=== PATIENT | female | born 1955 | race Caucasian/White ===

== ENCOUNTER 2019-03-23 11:08 | Observation (INO) ==
--- NOTE | 2019-03-23 16:05 | Emergency Department Note ---
Disposition Clinical Impression: Flushing, Hyperglycemia Hypertension Qualifiers: Hypertension type: unspecified Qualified Code(s): I10 - Essential (primary) hypertension Disposition: Still a Patient Condition: Undetermined Forms: ED Satisfaction Letter Time of Disposition: 16:26 General Adult HPI - General Chief complaint: ED Recheck/Abnormal Lab/Rx Stated complaint: hyperglycemia, hypertension Time Seen by Provider: 03/23/19 16:00 Source: patient Mode of arrival: ambulatory Limitations: no limitations Nursing Notes Reviewed: Yes Vital Signs Reviewed: Yes - History of Present Illness HPI Narrative: 63-year-old female past medical history of hypertension and diabetes presenting for 1 month of gradually progressive worsening shortness of breath along with intermittent chest pain, flushing, angry outbursts, and diaphoresis. Patient states that her blood pressure has run within normal ranges and intermittently will go up with a systolic above 200. Patient states that she has chest pain during this time has worsening shortness of breath at baseline and also describes flushing, rubor, and diaphoresis. Patient states is symptomatic at this time, normotensive hemodynamically stable. Onset (ago): month(s) Location: chest Pain Severity: mild Pain Scale: 1 Associated symptoms: Reports: chest pain, diaphoresis, shortness of breath, weakness - Related Data Allergies Allergy/AdvReac Type Severity Reaction Status Date / Time clindamycin Allergy Anaphylaxis Verified 03/23/19 11:17 Review of Systems: *See History of Present Illness for more detail Constitutional: Patient admits to intermittent flushing with diaphoresis Denies: fever, chills Cardiovascular: Admits to intermittent chest pain Respiratory: Admits dyspnea, denies: cough, hemoptysis Gastrointestinal: Denies: abdominal pain, nausea, vomiting, diarrhea, constipation, hematemesis, melena, hematochezia Genitourinary: Denies: hematuria Musculoskeletal: Denies: back pain, neck pain Neurological: Admits to intermittent headache, weakness. Denies: lightheadedness/dizziness, numbness, paresthesias, difficulty with ambulation. Endocrine: Admits fatigue All systems ED: reviewed and negative except as stated. Review of Systems: As Per HPI Past Medical History - Past Medical History Medical history: Reports: asthma, diabetes, hypertension Psychiatric history: Reports: no psych history - Social History Smoking Status: Never smoker Smokeless Tobacco Status: No Alcohol use: Reports: none Drug use: Reports: none Physical Exam Constitutional: No acute distress, [id number], engaged to conversation, speech is fluid, answers questions appropriately Neuro: GCS 15, no overt focal neurological deficits Head: Atraumatic, normocephalic Eyes: Pupils equal, round and reactive to light, no scleral icterus, no conjunctival injection Neck: Trachea midline without deviation. Anterior neck is supple without swelling. *Chest: Symmetric chest wall rise *Heart: Cardiac rhythm and rate are regular with S1 and S2 , no S3 or S4 appre ciated, no murmurs, gallops, rubs, or clicks. *Lungs: Lungs are clear to auscultation bilaterally, without accessory muscle use or prolonged expiratory phase. No wheezes, rhonchi or stridor appreciated. Abdomen: Abdomen is flat, soft to palpation, normal bowel sounds. No abdominal bruit auscultated. Non-distended, non-rigid, no organomegaly, no ascites appreciated. No pulsatile mass, no tenderness or guarding to palpation in all four quadrants, no rebound Extremities: Normal capillary refill without evidence of pedal edema, joint swelling or erythema. Pulses/motor/sensory intact in all 4 extremities. Psychiatric exam: Patient displays a normal affect and mood for the environment. No overt signs of hallucination. Integumentary: warm, dry, intact, normal color. No rash, cyanosis, diaphoresis, erythema, or pallor - General Limitations: no limitations General appearance: alert, in no apparent distress Course Course Narrative: Differential diagnosis includes but is not limited to: Myocardial ischemia DKA Pneumonia Pheochromocytoma Evaluations: CBC, BMP, beta hydroxybutyric acid, urine metanephrines, chest x- ray, EKG/old EKG, troponin Vital Signs Temperature 98.6 F 03/23/19 11:11 Pulse Rate 89 03/23/19 11:11 Respiratory Rate 16 03/23/19 11:11 Blood Pressure 144/88 03/23/19 11:11 O2 Sat by Pulse Oximetry 96 03/23/19 11:11 Temperature 98.6 F 03/23/19 11:11 Pulse Rate 85 03/23/19 16:39 Respiratory Rate 18 03/23/19 16:39 Blood Pressure 141/79 03/23/19 16:39 O2 Sat by Pulse Oximetry 94 03/23/19 16:39 Oxygen Delivery Oxygen Delivery Room Air Medical Decision Making - MDM Narrative Medical decision making narrative: Patient signed out to attending physician Dr. Terry Coronel at the end of my shift. Please see documentation by this physician for further evaluation, management, and final disposition. I reviewed the residents documentation and agree with the residents assessment and plan of care. I have personally had face to face time with the patient. (Brief History, Brief Exam, and MDM) I personally supervised and was present for the avery/critical portions of the following procedures completed by the resident: (add procedures performed here). EKG was read and interpreted by Dr. Carlos Henley under my supervision, I agree with his interpretation. 1652 hrs.: Waiting on labs: Going to sign this case out to Dr. Terry Coronel for further management disposition. Patient is updated. - EKG Data EKG #1 EKG attestation: Yes I reviewed and interpreted this EKG. EKG results narrative: Patient EKG shows sinus rhythm with a heart rate of 83 bpm, HI interval of 184 ms, QR catholic 94 ms, QT/QTc interval of 371/436 ms respectively, there is no significant ST segment elevations, depressions, pathologic Q waves, there is an abnormal T-wave inversion noted in lead aVL which appears isolated to this lead, there are no signs of acute ischemic change. This EKG performed today is generally consistent with prior EKG that was performed on 06/02/2014. Attestation Statement - Attestation Attestation: This documentation is done with the assistance of Dragon dictation. Despite eff orts made to ensure accuracy, there may be inaccuracies in linux network systems administrator or spelling and typographical errors. I examined this patient and my medical decision-making was reviewed with the Resident Physician. I agree with the documented findings, disposition and treatment plan as described except to the extent set forth below. Patient seen and evaluated by Dr. Carlos Henley and myself, I agree with his evaluation and management plan, supervise care the patient's stay. Patient present stay with intermittent episodes of high blood pressure and then we will normalize. An elevated blood sugars. She was sent her by cardiology. Blood pressures improved from over 200 systolic on 144. Sugar was 285. Renagel workup on her and then reassess. She is in agreement with this plan.
[2019-03-23 16:57] LABS: Basophils # 0.1 K/mcL (0.0-0.2); Basophils % 0.8 %; Eosinophils # 0.3 K/mcL (0.0-0.6); Eosinophils % 3.4 %; Hematocrit 46.6 % (35.3-44.9); Hemoglobin 15.4 g/dL (11.5-15.4); Immature Granulocytes % 0.1 % (0-4); Lymphocytes # 2.5 K/mcL (0.6-4.6); Lymphocytes % 34.1 %; Mean Corpuscular Hemoglobin 29.3 pg (28.0-33.3); Mean Corpuscular Volume 88.6 fL (83.0-100.0); Mean Platelet Volume 10.1 fL (9.4-12.4); Monocytes # 0.4 K/mcL (0.0-1.3); Monocytes % 5.4 %; Platelet Count 270 K/mcL (140-400); Red Blood Count 5.26 M/mcL (3.82-4.97); Red Cell Distribution Width 12.7 % (11.5-14.5); Segmented Neutrophils % 56.2 %; White Blood Count 7.4 K/mcL (4.3-11.1)
[2019-03-23 16:58] LABS: Neutrophils # 4.2 K/mcL (1.6-8.9)
[2019-03-23 17:19] LABS: BUN/Creatinine Ratio 35 (6-26); Blood Urea Nitrogen 29 mg/dL (8-23); Carbon Dioxide 27 mEq/L (23-29); Chloride 100 mEq/L (98-107); Glucose 148 mg/dL (70-105); Osmolality,Calculated 297 (280-300); Potassium 4.2 mEq/L (3.5-5.1); Sodium 139 mEq/L (136-145); eGFR For African Americans > 60 (> 60); eGFR For Non-African Americans > 60 (> 60)
[2019-03-23 17:21] LABS: Platelet Estimate Normal (Normal); Reactive Lymphocytes Present (Not Present); Toxic Granulation Present (Not Present)
--- NOTE | 2019-03-23 18:08 | Emergency Department Note ---
Disposition Clinical Impression: Flushing, Hyperglycemia, Shortness of breath Hypertension Qualifiers: Hypertension type: unspecified Qualified Code(s): I10 - Essential (primary) hypertension Disposition: Admitted As Inpatient Condition: Fair Referrals: Ja Cardoso MD [Primary Care Provider] - Forms: ED Satisfaction Letter Time of Disposition: 20:25 General Adult HPI - General Chief complaint: ED Recheck/Abnormal Lab/Rx Stated complaint: hyperglycemia, hypertension Time Seen by Provider: 03/23/19 16:00 Source: patient Mode of arrival: ambulatory Limitations: no limitations - History of Present Illness Location: chest Pain Scale: 1 Associated symptoms: Reports: chest pain, diaphoresis, shortness of breath, weakness - Related Data Allergies Allergy/AdvReac Type Severity Reaction Status Date / Time clindamycin Allergy Anaphylaxis Verified 03/23/19 11:17 Past Medical History - Past Medical History Medical history: Reports: asthma, diabetes, hypertension Psychiatric history: Reports: no psych history - Social History Smoking Status: Never smoker Smokeless Tobacco Status: No Alcohol use: Reports: none Drug use: Reports: none Physical Exam - General Limitations: no limitations General appearance: alert, in no apparent distress Course Course Narrative: Patient was received in sign out from the daytime physician Dr. Alvarez. Patient was sent here by cardiology Dr. Gill for evaluation of elevated blood pressure exertional shortness of breath and described intermittent chest discomfort and pain. Patient has no specific cardiac history but is being managed to find blood pressure medications at home. This workup is established considering the patient's blood pressures and symptoms were unremarkable on arrival. CBC chemistry troponin electrolytes of been ordered. TSH and urine metanephrines of been established. Patient describes significant exertional dyspnea at home. Lungs are clear heart is regular abdomen is soft. Extremities are normal but you have signs of pitting edema. Patient is otherwise asymptomatic at this time. Concern is noted based on my physical exam the patient has progressively worsening shortness of breath either secondary to pulmonary related issues versus cardiac related etiology. The recommendations from the motorcycle police will be followed. Patient will have symptomatically control established as needed and screening evaluation completed. Patient will be admitted after conversation was had with the on-call motorcycle police to make sure this is appropriate. Patient is otherwise in no distress. Patient family informed that we will most likely recommend admission at the request of the motorcycle police for symptomatic control management. See detailed documentation the previous physical exam medical intervention evaluation the other providers notes. No other acute changes at this time. - Reevaluation(s) Reevaluation #1: Patient was discussed with the on-call motorcycle police Dr. Gill. Recommendation was made for admission secondary to the patient not having a stress test and persistently worsening shortness of breath. Workup was reviewed. I discussed this with the on-call hospitalist Dr. Lawson. Patient is otherwise stable. Recommendations for admission were discussed. No other recommendations at this time prior to the admission being completed. Patient will be monitored here in emergency room until admission processes established. Time: 20:25 Vital Signs Temperature 98.6 F 03/23/19 11:11 Pulse Rate 89 03/23/19 11:11 Respiratory Rate 16 03/23/19 11:11 Blood Pressure 144/88 03/23/19 11:11 O2 Sat by Pulse Oximetry 96 03/23/19 11:11 Temperature 98.6 F 03/23/19 11:11 Pulse Rate 85 03/23/19 19:05 Respiratory Rate 20 03/23/19 19:05 Blood Pressure 148/70 03/23/19 19:05 O2 Sat by Pulse Oximetry 92 03/23/19 19:05 Oxygen Delivery Oxygen Delivery Room Air Medical Decision Making - MDM Narrative Medical decision making narrative: Chest pain, shortness of breath, exertional dyspnea - Medical Records Medical records reviewed: Yes I reviewed the patient's medical records. - Lab Data Lab results reviewed: Yes I reviewed the patient's lab results. Result diagrams: 03/23/19 16:44 03/23/19 16:44 Lab Results 03/23/19 03/23/19 03/23/19 Range/Units 16:44 16:44 16:44 WBC 7.4 (4.3-11.1) K/mcL RBC 5.26 H (3.82-4.97) M/mcL Hgb 15.4 (11.5-15.4) g/dL Hct 46.6 H (35.3-44.9) % MCV 88.6 (83.0-100.0) fL MCH 29.3 (28.0-33.3) pg MCHC 33.0 (31.6-35.5) g/dL RDW 12.7 (11.5-14.5) % Plt Count 270 (140-400) K/mcL MPV 10.1 (9.4-12.4) fL Immature Gran % 0.1 (0-4) % Seg Neutrophils % 56.2 % Lymphocytes % 34.1 % Monocytes % 5.4 % Eosinophils % 3.4 % Basophils % 0.8 % Neutrophils # 4.2 (1.6-8.9) K/mcL Lymphocytes # 2.5 (0.6-4.6) K/mcL Monocytes # 0.4 (0.0-1.3) K/mcL Eosinophils # 0.3 (0.0-0.6) K/mcL Basophils # 0.1 (0.0-0.2) K/mcL Reactive Lymphocytes Present A (Not Present) Toxic Granulation Present A (Not Present) Platelet Estimate Normal (Normal) Sodium 139 (136-145) mEq/L Potassium 4.2 (3.5-5.1) mEq/L Chloride 100 (98-107) mEq/L Carbon Dioxide 27 (23-29) mEq/L BUN 29 H (8-23) mg/dL Creatinine 0.83 (0.60-1.20) mg/dL Est GFR ( Amer) > 60 (> 60) Est GFR (Non-Af Amer) > 60 (> 60) BUN/Creatinine Ratio 35 H (6-26) Glucose 148 H (70-105) mg/dL POC Glucose (70-99) mg/dL Calculated Osmolality 297 (280-300) Calcium 10.0 (8.6-10.3) mg/dL B-Natriuretic Peptide (Less than 100) pg/mL Beta-Hydroxybutyric Acd 0.21 (0.02-0.27) mmol/L TSH 3.977 (0.340-5.600) mcIU/mL Urine Color (Yellow) Urine Clarity (Clear) Urine pH (5.0-8.0) pH Units Ur Specific [place] (1.010-1.025) Urine Protein (Neg-Trace) mg/dL Urine Glucose (UA) (Normal) mg/dL Urine Ketones (Negative) mg/dL Urine Blood (Negative) Urine Nitrite (Negative) Urine Bilirubin (Negative) Urine Urobilinogen (Normal) mg/dL Ur Leukocyte Esterase (Negative) Urine Microscopic RBC (0-3) per hpf Urine Microscopic WBC (0-3) per hpf Ur Squamous Epith Cells (None-Few) per lpf Urine Bacteria (None-Few) per hpf Hyaline Casts (None-Few) per lpf Ur Culture Indicated? (NO) 03/23/19 03/23/19 03/23/19 Range/Units 16:44 17:57 18:50 WBC (4.3-11.1) K/mcL RBC (3.82-4.97) M/mcL Hgb (11.5-15.4) g/dL Hct (35.3-44.9) % MCV (83.0-100.0) fL MCH (28.0-33.3) pg MCHC (31.6-35.5) g/dL RDW (11.5-14.5) % Plt Count (140-400) K/mcL MPV (9.4-12.4) fL Immature Gran % (0-4) % Seg Neutrophils % % Lymphocytes % % Monocytes % % Eosinophils % % Basophils % % Neutrophils # (1.6-8.9) K/mcL Lymphocytes # (0.6-4.6) K/mcL Monocytes # (0.0-1.3) K/mcL Eosinophils # (0.0-0.6) K/mcL Basophils # (0.0-0.2) K/mcL Reactive Lymphocytes (Not Present) Toxic Granulation (Not Present) Platelet Estimate (Normal) Sodium (136-145) mEq/L Potassium (3.5-5.1) mEq/L Chloride (98-107) mEq/L Carbon Dioxide (23-29) mEq/L BUN (8-23) mg/dL Creatinine (0.60-1.20) mg/dL Est GFR ( Amer) (> 60) Est GFR (Non-Af Amer) (> 60) BUN/Creatinine Ratio (6-26) Glucose (70-105) mg/dL POC Glucose 127 H (70-99) mg/dL Calculated Osmolality (280-300) Calcium (8.6-10.3) mg/dL B-Natriuretic Peptide 18 (Less than 100) pg/mL Beta-Hydroxybutyric Acd (0.02-0.27) mmol/L TSH (0.340-5.600) mcIU/mL Urine Color Yellow (Yellow) Urine Clarity Cloudy A (Clear) Urine pH 5.0 (5.0-8.0) pH Units Ur Specific [place] 1.027 H (1.010-1.025) Urine Protein Trace (Neg-Trace) mg/dL Urine Glucose (UA) Normal (Normal) mg/dL Urine Ketones Negative (Negative) mg/dL Urine Blood Negative (Negative) Urine Nitrite Negative (Negative) Urine Bilirubin Negative (Negative) Urine Urobilinogen Normal (Normal) mg/dL Ur Leukocyte Esterase Negative (Negative) Urine Microscopic RBC 0-3 (0-3) per hpf Urine Microscopic WBC 3-5 H (0-3) per hpf Ur Squamous Epith Cells Many H (None-Few) per lpf Urine Bacteria None Seen (None-Few) per hpf Hyaline Casts None Seen (None-Few) per lpf Ur Culture Indicated? NO (NO) - Radiology Data Radiology results reviewed: Yes I reviewed the patient's radiology results. Chest x-ray is reviewed and unremarkable this time.
[2019-03-23 18:21] LABS: Thyroid Stimulating Hormone 3.977 mcIU/mL (0.340-5.600)
[2019-03-23] MEDS ORDERED: Aspirin 81 MG TAB.CHEW PO STA (18:27)
[2019-03-23 19:11] LABS: Bilirubin,Urine Negative (Negative); Blood,Urine Negative (Negative); Clarity,Urine Cloudy (Clear); Color,Urine Yellow (Yellow); Glucose,Urine (UA) Normal (Normal); Ketones,Urine Negative (Negative); Leukocyte Esterase,Urine Negative (Negative); Nitrite,Urine Negative (Negative); Protein,Urine Trace mg/dL (Neg-Trace); Specific Gravity,Urine 1.027 (1.010-1.025); Urobilinogen,Urine Normal (Normal)
[2019-03-23 19:13] LABS: Bacteria,Urine None Seen per hpf (None-Few); Hyaline Casts,Urine None Seen per lpf (None-Few); RBC,Urine 0-3 per hpf (0-3); Squamous Epithelial Cell,Urine Many per lpf (None-Few)
[2019-03-24] MEDS ORDERED: traMADol 50 MG TABLET PO PRN (01:45)
[2019-03-24] MEDS ORDERED: Acetaminophen 325 MG TABLET PO PRN (01:45)
[2019-03-24] MEDS ORDERED: Naloxone 0.4 MG/ML INJ IVP PRN (01:45)
[2019-03-24] MEDS ORDERED: Ondansetron 4 MG/2 ML VIAL IVP PRN (01:45)
[2019-03-24] MEDS ORDERED: Dextrose Gel 15 GM/37.5 ML TUBE PO PRN ×2 (01:50)
[2019-03-24] MEDS ORDERED: *HR* Dextrose 50 % in Water (Syg) 50 ML SYRINGE IVP PRN (01:50)
[2019-03-24] MEDS ORDERED: D5% in Water 1,000 ML IVC PRN (01:50)
[2019-03-24] MEDS ORDERED: Ipratropium/Albuterol Neb 3 ML IH PRN (01:54)
[2019-03-24 02:27] LABS: Blood Urea Nitrogen 29 mg/dL (8-23); Calcium 9.4 mg/dL (8.6-10.3); Carbon Dioxide 29 mEq/L (23-29); Chloride 101 mEq/L (98-107); Chol/HDL Ratio 5.9 (0-4.9); Cholesterol 170 mg/dL (< 200); Glucose 175 mg/dL (70-105); HDL Cholesterol 29 mg/dL (40-59); LDL Cholesterol,Calculated 65 mg/dL (0-99); Magnesium 1.8 mg/dL (1.6-2.6); Osmolality,Calculated 298 (280-300); Potassium 3.6 mEq/L (3.5-5.1); Sodium 139 mEq/L (136-145); Triglycerides 381 mg/dL (< 150)
--- NOTE | 2019-03-24 03:00 | Internal Med History&Physical ---
Date of Encounter: 03/24/19 Time of Encounter: 00:45 Internal Medicine - H&P: HPI Chief complaint: SOB/HTN Admitted From: Emergency Dept Plans for Post Hospital Care: Home History of present illness: Ms. Martinez is a 63 year old female w/PMH of DM, HTN, asthma, and anxiety presents from the ED after being referred there by Dr. Gill while she was being seen in his office. Pts BP in the office was over 200 systolically, so Dr. Gill sent her to [facility] for work-up and further testing including his recommendation for a stress test. Pt. reports SOB and swellin in LLE for the past several months. Pt. also reports chest tightness as well as all-over pain from arthralgias. Pt. denies diaphoresis, N/V. Pt. states she has not felt well for the past 4 days and has a cough. Denies fever/chills. States her PCP told her she may have developing asthma. Pt. denies nausea, vomiting, fever, chills, headache, changes in vision, unusual bleeding, abdominal pain, diarrhea, constipation, numbness, tingling, dizziness, lightheadedness, pre-syncope, or syncope. Past Med Surg Social Fam HX - Past Medical History Source: patient, old records reviewed Medical history: asthma, diabetes, hypertension Psychiatric history: no psych history - Past Surgical History Surgical History: other (See below) Additional surgical history: spinal fusion, right indext finger partial amputation - Social History Smoking Status: Never smoker Smokeless Tobacco Status: No Alcohol use: none Drug use: none Occupational status: employed Current living situation: Home Activity Level: Independent ambulation Recent Out of Country Travel Within the Last 8 Weeks: No Exposure or Possible Exposure to Illness During Travel: No - Family History Mother Race: Family Member Ethnicity: Non- Living Status: Age at : 51 Cause of : Metastatic bone cancer Hx Family Cancer: Yes (Bone) Father Race: Family Member Ethnicity: Non- Living Status: Age at : 70 Cause of : Lung cancer Hx Family Respiratory Disorders: Yes (Emphysema) Hx Family Cancer: Yes (Lung) Grandmother Race: Family Member Ethnicity: Non- Living Status: Cause of : CAD Hx Family Cardiac Disorders: Yes (CAD) Hx Family Endocrine Disorder: Yes (DM) Brother Race: Family Member Ethnicity: Non- Living Status: Still Living Hx Family Medical Disorders: No Sister Race: Family Member Ethnicity: Non- Living Status: Still Living Hx Family Cardiac Disorders: Yes (CAD) Hx Family Endocrine Disorder: Yes (DM) Internal Medicine - H&P: Meds Insulin LISPRO [HumaLOG] 0 units SQ TIDWM 03/23/19 [History] Lisinopril [Zestril] 20 mg PO DAILY 03/23/19 [History] Metoprolol [Lopressor] 100 mg PO BID 03/23/19 [History] Paxil 40 mg DAILY 03/23/19 [History] Tizanidine HCl 4 mg PO PRN 03/23/19 [History] amLODIPine 03/23/19 [History] hydrALAZINE [HydrALAZINE] 25 mg PO TID 03/23/19 [History] metFORMIN [Glucophage] 1,000 mg PO BID 03/23/19 [History] Allergy/AdvReac Type Severity Reaction Status Date / Time clindamycin Allergy Anaphylaxis Verified 03/23/19 11:17 All Systems PM: A 10-system review of systems was performed and is negative for pertinent findings except as documented above in the HPI. - Constitutional Constitutional: as per HPI - EENT Eyes: no change in vision, no discharge, no pain, no photophobia Ears: no ear discharge, no ear pain, no tinnitus Nose, mouth and throat: no dysphagia, no nasal discharge, no neck pain, no sore throat - Breasts Breasts: as per HPI - Cardiovascular Cardiovascular ROS IM: as per HPI, dyspnea, dyspnea on exertion, edema - Respiratory Respiratory: as per HPI, cough, dyspnea, dyspnea on exertion, no wheezing, no excessive phlegm production - Gastrointestinal Gastrointestinal: no abdominal pain, no diarrhea, no hematemesis, no hematochezia, no melena, no nausea, no vomiting - Genitourinary Genitourinary: no change in urinary stream, no dysuria, no flank pain, no hematuria Menstruation: as per HPI - Musculoskeletal Musculoskeletal ROS IM: as per HPI, arthralgias, no numbness, no tingling - Integumentary Integumentary IM: no rash, no unusual bruising - Neurological Neurological ROS: no confusion, no convulsions, no focal weakness, no numbness, no tingling, no tremor(s) - Psychiatric Psychiatric: as per HPI, anxiety - Endocrine Endocrine IM: as per HPI - Hematologic/Lymphatic Hematologic/Lymphatic: no easy bruising - Allergic/Immunologic Allergic/Immunologic: as per HPI - Constitutional Vitals: Temp Pulse Resp BP Pulse Ox 97.8 F 86 19 152/86 93 03/24/19 00:50 03/24/19 00:50 03/24/19 00:50 03/24/19 00:50 03/24/19 00:50 General appearance: Present: cooperative, mild distress (SOB), A&O X 3, morbidly obese, pleasant, answers questions appropriately Exam: Patient examined at bedside. Patient reports SOB with mild chest tightness. Patient also reports cough and not feeling well for the past four days. Denies any other symptoms or complaints at this time. VS: 97.8F temp, HR 86, RR 19, BP 152/86, SPO2 93% on room air. - Head Head exam: Present: atraumatic, normocephalic - Eye Eye exam: Present: PERRL, conjuntiva pink, sclera anicteric Pupils: Present: PERRL - ENT ENT exam: Present: normal exam - Neck Neck exam general surgery: Present: normal inspection, supple, trachea midline. Absent: lymphadenopathy - Respiratory Respiratory exam: Present: CTAB. Absent: accessory muscle use, rales, rhonchi, wheezes - Cardiovascular Cardiovascular exam: Present: RRR, +S1, +S2 - GI/Abdominal GI/Abdominal exam: Present: normal bowel sounds, soft, no peritoneal signs. Absent: distended, tenderness - Rectal Rectal exam: Present: deferred - Additional comments: exam deferred. - Extremities Exam Extremities exam: Present: pedal edema, warm, radial pulses palpable and symmetrical. Absent: calf tenderness, cyanotic - Back Exam Back exam: Present: normal inspection - Neurological Exam Neurological exam: Present: alert, CN II-XII intact, oriented X3, no focal deficits. Absent: pronater drift, facial droop, speech deficit - Psychiatric Psychiatric exam: Present: normal affect, normal mood - Skin Skin exam: Present: dry, intact Internal Med - H&P Results - Labs CBC & Chem 7: 03/24/19 00:51 03/24/19 00:51 Labs: Short CBC 03/23/19 Range/Units 16:44 WBC 7.4 (4.3-11.1) K/mcL Hgb 15.4 (11.5-15.4) g/dL Hct 46.6 H (35.3-44.9) % Plt Count 270 (140-400) K/mcL Neutrophils # 4.2 (1.6-8.9) K/mcL BMP 03/23/19 03/24/19 16:44 00:51 Sodium 139 139 Potassium 4.2 3.6 Chloride 100 101 Carbon Dioxide 27 29 BUN 29 H 29 H Creatinine 0.83 Glucose 148 H 175 H Calcium 10.0 9.4 Cardiac Enzymes 03/24/19 Range/Units 00:51 Troponin I < 0.03 (< 0.04) ng/mL Urine 03/23/19 Range/Units 18:50 Urine Color Yellow (Yellow) Urine Clarity Cloudy A (Clear) Urine pH 5.0 (5.0-8.0) pH Units Ur Specific [place] 1.027 H (1.010-1.025) Urine Protein Trace (Neg-Trace) mg/dL Urine Glucose (UA) Normal (Normal) mg/dL - EKG Data EKG shows normal: sinus rhythm Rate: normal - EKG Data Prior EKG available for review: no Interpretation IM: normal EKG - Impressions ITS Impressions Chest X-Ray 03/23/19 16:19 IMPRESSION: No acute cardiopulmonary findings. D/ / Stacie Shankar MD / Stacie Shankar MD Interpreting Provider: Stacie Shankar MD - Diagnostic Studies Chest x-ray Additional comments: Impressions Chest X-Ray 03/23/19 16:19 IMPRESSION: No acute cardiopulmonary findings. D/ / Stacie Shankar MD / Stacie Shankar MD Interpreting Provider: Stacie Shankar MD - Assessment and Plan (1) Chest tightness Current Visit: Yes Status: Acute Assessment and plan: Acute chest tightness for the past several months that is intermittent. PCP told pt. she may have developing asthma. Pt. reports cough and not feeling well for the past four days. Stat respiratory infection panel ordered to rule out viral basis. Echo on 03/14/19 showed technically suboptimal testing due to body habitus. LVEF of 60-65%, normal LV chamber size and function, mild concentric left ventricular hypertrophy, moderate left ventricular diastolic dysfunction, mildly dilated right ventricle with normal function, mild mitral regurgitation, and mild to moderate pulmonary hypertension. Estimated RVSP 47 mmHg. CXR today showed no acute pulmonary findings. Initial troponin <0.03. Trending. ASA in ED. SL nitro PRN. Nuclear stress in a.m. per Dr. Gill's recommendation to pt. during office visit if troponins remain WNL. NPO. Consider Cardiology consult if troponins and/or stress test results abnormal. Pt. is high risk for cardiac event and further morbidity d/t poorly controlled HTN, current symptoms of SOB/chest tightness, familial hx of CAD, DM, and current morbid obesity. Observation. (2) Shortness of breath Current Visit: Yes Status: Acute Assessment and plan: Acute SOB over the past few months that has worsened. Concern for possible CHF. Echo on 03/14/19 showed technically suboptimal testing due to body habitus. LVEF of 60-65%, normal LV chamber size and function, mild concentric left ventricular hypertrophy, moderate left ventricular diastolic dysfunction, mildly dilated right ventricle with normal function, mild mitral regurgitation, and mild to moderate pulmonary hypertension. Estimated RVSP 47 mmHg. CXR today showed no acute pulmonary findings. Supplemental O2 with titration and SPO2 monitoring. DuoNeb's when necessary. Mucinex for cough. (3) Hypertension Current Visit: Yes Status: Chronic Assessment and plan: Hx of poorly controlled HTN. Pt. reports blood pressure runs high and then returns to normal. Pt. sees Dr. Gill who saw her today and referred her to the ED d/t systolic BP >200. Continue pts. Amlodipine, hydralazine, lisinopril, and metoprolol. Qualifiers: Hypertension type: essential hypertension Qualified Code(s): I10 - Essential (primary) hypertension (4) Diabetes Current Visit: Yes Status: Chronic Assessment and plan: Hx of chronic DM controlled with insulin and oral antihyperglycemic medications. Will hold metformin and administer low-dose correction sliding scale insulin with hypoglycemic protocol. BG checks currently every 6 due to nothing by mouth status. Will change to before meals at bedtime after patient's stress test. A1c in a.m. labs. Qualifiers: Diabetes mellitus type: type 2 Diabetes mellitus terminal operator insulin use: unspecified intermediate insulin use status Diabetes mellitus complication status: with other specified complication Qualified Code(s): E11.69 - Type 2 diabetes mellitus with other specified complication (5) Asthma Current Visit: Yes Status: Chronic Assessment and plan: Hx of chronic anxiety. Stable. Pt. reports some chest tightness and cough. DuoNebs. Mucinex for cough. Supplemental O2 with titration and SPO2 monitoring. Qualifiers: Asthma severity: mild Asthma persistence: intermittent Asthma complication type: uncomplicated Qualified Code(s): J45.20 - Mild intermittent asthma, uncomplicated (6) Anxiety Current Visit: Yes Status: Chronic Assessment and plan: Hx of chronic anxiety. Continue pts. Paxil. (7) DVT prophylaxis Current Visit: Yes Status: Acute Assessment and plan: Heparin 5,000 units SQ Q8HR for DVT prophylaxis. Monitor pt. for signs of bleeding. - Time Spent With Patient Total time spent is greater than 50% in coordination of care (as documented) at patient's floor/unit and/or counseling patient: Greater than 35 minutes
[2019-03-24 03:01] LABS: Hematocrit 44.5 % (35.3-44.9); Hemoglobin 14.4 g/dL (11.5-15.4); Mean Corpuscular HGB Conc 32.4 g/dL (31.6-35.5); Mean Corpuscular Volume 89.7 fL (83.0-100.0); Mean Platelet Volume 10.6 fL (9.4-12.4); Platelet Count 256 K/mcL (140-400); Red Blood Count 4.96 M/mcL (3.82-4.97); Red Cell Distribution Width 12.8 % (11.5-14.5)
[2019-03-24 03:10] LABS: BUN/Creatinine Ratio 29 (6-26); eGFR For African Americans > 60 (> 60); eGFR For Non-African Americans 55 (> 60)
[2019-03-24] MEDS ORDERED: Nitroglycerin 0.4 MG TAB.SUBL SL PRN (03:37)
[2019-03-24 04:27] LABS: Adenovirus Not Detected (Not Detect); Bordetella Pertussis Not Detected (Not Detect); Chlamydophila pneumoniae Not Detected (Not Detect); Coronavirus 229E Not Detected (Not Detect); Coronavirus HKU1 Not Detected (Not Detect); Coronavirus NL63 Not Detected (Not Detect); Coronavirus OC43 Not Detected (Not Detect); Human Metapneumovirus Not Detected (Not Detect); Human Rhinovirus/Enterovirus Not Detected (Not Detect); Influenza A Subtype 2009 H1 Not Detected (Not Detect); Influenza A Untypeable Not Detected (Not Detect); Influenza B Not Detected (Not Detect); Mycoplasma pneumoniae Not Detected (Not Detect); Parainfluenza Virus 1 Not Detected (Not Detect); Parainfluenza Virus 2 Not Detected (Not Detect); Parainfluenza Virus 3 DETECTED (Not Detect); Parainfluenza Virus 4 Not Detected (Not Detect); Respiratory Syncytial Virus Not Detected (Not Detect)
[2019-03-24] MEDS ORDERED: Regadenoson 0.4 MG/5 ML SYRINGE IVP ONE (06:09)
[2019-03-24] MEDS: *HR* Heparin 5,000 UNIT/ML VIAL SQ SCH ×3 (06:28→22:10)
[2019-03-24] MEDS: Insulin LISPRO 300 UNITS/3 ML VIAL SQ SCH ×3 (07:52→16:37)
[2019-03-24 08:35] LABS: Estimated Average Glucose 223 mg/dl; Hemoglobin A1C 9.4 %
[2019-03-24] MEDS: Lisinopril 20 MG TABLET PO SCH (12:36)
[2019-03-24] MEDS: Metoprolol 100 MG TABLET PO SCH ×2 (12:36→22:10)
[2019-03-24] MEDS: hydrALAZINE 25 MG TABLET PO SCH ×3 (12:36→22:10)
--- NOTE | 2019-03-24 13:49 | Internal Med Progress Note ---
<Sedrick Vargas - Last Filed: 03/24/19 13:45> Hospitalist Progress Note - Encounter Date of Encounter: 03/24/19 Time of Encounter: 10:00 - Subjective Interval History: When seen today patient denies any chest pain. She says her shortness of breath has improved since admission. She denies any fever. Says that swelling in her lower extremities has improved since admission. Denies any nausea, vomiting, abdominal pain. - Exam Vitals: Temp Pulse Resp BP Pulse Ox 98.1 F 88 18 166/84 96 03/24/19 10:48 03/24/19 10:48 03/24/19 10:48 03/24/19 10:48 03/24/19 10:48 Exam: GENERAL APPEARANCE: Morbidly obese, alert and cooperative, and appears to be in no acute distress. HEAD: normocephalic. EYES: PERRL, EOMI. Fundi normal, vision is grossly intact. EARS: hearing grossly intact. NOSE: No nasal discharge. THROAT: Oral cavity and pharynx normal. No inflammation, swelling, exudate, or lesions. NECK: Neck supple, non-tender without lymphadenopathy, masses or thyromegaly. CARDIAC: Normal S1 and S2. No S3, S4 or murmurs. Rhythm is regular. There is no peripheral edema, cyanosis or pallor. Extremities are warm and well perfused. Capillary refill is less than 2 seconds. No carotid bruits. LUNGS: Clear to auscultation and percussion without rales, rhonchi, wheezing or diminished breath sounds. ABDOMEN: Positive bowel sounds. Soft, nondistended, nontender. No guarding or rebound. No masses. MUSKULOSKELETAL: ROM intact spine and extremities. No joint erythema or tenderness. Normal muscular development. EXTREMITIES: No significant deformity or joint abnormality. Peripheral pulses intact. No varicosities. LOWER EXTREMITY: Borderline +1 pitting edema bilaterally. Pulses intact and symmetrical bilaterally. Good capillary refill. SKIN: Skin normal color, texture and turgor with no lesions or eruptions. PSYCHIATRIC: The mental examination revealed the patient was oriented to person, place, and time. - Assessment and Plan (1) Chest tightness Current Visit: Yes Status: Acute Assessment and Plan: Acute chest tightness for the past several months that is intermittent. PCP told pt. she may have developing asthma. Pt. reports cough and not feeling well for the past four days. Stat respiratory infection panel ordered to rule out viral basis. Echo on 03/14/19 showed technically suboptimal testing due to body habitus. LVEF of 60-65%, normal LV chamber size and function, mild concentric left ventricular hypertrophy, moderate left ventricular diastolic dysfunction, mildly dilated right ventricle with normal function, mild mitral regurgitation, and mild to moderate pulmonary hypertension. Estimated RVSP 47 mmHg. CXR today showed no acute pulmonary findings. Initial troponin <0.03. Trending. ASA in ED. SL nitro PRN. Nuclear stress in a.m. per Dr. Gill's recommendation to pt. during office visit if troponins remain WNL. NPO. Consider Cardiology consult if troponins and/or stress test results abnormal. Pt. is high risk for cardiac event and further morbidity d/t poorly controlled HTN, current symptoms of SOB/chest tightness, familial hx of CAD, DM, and current morbid obesity. Troponins negative 3. Echocardiogram showed normal EF with mild diastolic dysfunction. Patient completed first day of cardiac stress test. Plan: - Patient to complete second day of stress test tomorrow. - Continue with aspirin. - Continue cardiac monitoring. (2) Shortness of breath Current Visit: Yes Status: Acute Assessment and Plan: Acute SOB over the past few months that has worsened. Initial Concern for possible CHF. Echo on 03/14/19 showed technically suboptimal testing due to body habitus. LVEF of 60-65%, normal LV chamber size and function, mild concentric left ventricular hypertrophy, moderate left ventricular diastolic dysfunction, mildly dilated right ventricle with normal function, mild mitral regurgitation, and mild to moderate pulmonary hypertension. Estimated RVSP 47 mmHg. CXR showed no acute pulmonary findings. Patient tested positive for parainfluenza virus. Viral infection could be source shortness of breath in addition to obese body habitus. Plan: - Supplemental O2 with titration and SPO2 monitoring. - DuoNeb's when necessary. - Mucinex for cough. - Contact precautions. (3) Hypertension Current Visit: Yes Status: Chronic Assessment and Plan: Blood pressure currently 147/80. Plan: - Continue with lisinopril, metoprolol, and hydralazine home medications. (4) Diabetes Current Visit: Yes Status: Chronic Assessment and Plan: Continue with sliding scale. DVT Prophylaxis: - Heparin subcutaneously. - Time Spent with Patient Total time spent is greater than 50% in coordination of care (as documented) at patient's floor/unit and/or counseling patient: Internal Medicine: Result - Labs CBC & Chem 7: 03/24/19 00:51 03/24/19 00:51 Labs: Short CBC 03/23/19 03/24/19 Range/Units 16:44 00:51 WBC 7.4 7.0 (4.3-11.1) K/mcL Hgb 15.4 14.4 (11.5-15.4) g/dL Hct 46.6 H 44.5 (35.3-44.9) % Plt Count 270 256 (140-400) K/mcL Neutrophils # 4.2 (1.6-8.9) K/mcL BMP 03/23/19 03/24/19 16:44 00:51 Sodium 139 139 Potassium 4.2 3.6 Chloride 100 101 Carbon Dioxide 27 29 BUN 29 H 29 H Creatinine 0.83 1.01 Glucose 148 H 175 H Calcium 10.0 9.4 Cardiac Enzymes 03/24/19 03/24/19 Range/Units 00:51 10:06 Troponin I < 0.03 < 0.03 (< 0.04) ng/mL Urine 03/23/19 Range/Units 18:50 Urine Color Yellow (Yellow) Urine Clarity Cloudy A (Clear) Urine pH 5.0 (5.0-8.0) pH Units Ur Specific [place] 1.027 H (1.010-1.025) Urine Protein Trace (Neg-Trace) mg/dL Urine Glucose (UA) Normal (Normal) mg/dL - Impressions Impressions Chest X-Ray 03/23/19 16:19 IMPRESSION: No acute cardiopulmonary findings. D/ / Stacie Shankar MD / Stacie Shankar MD Interpreting Provider: Stacie Shankar MD Consult Discharge Plan - Plan Referrals: Ja Cardoso MD [Primary Care Provider] - <Celestino Sumner - Last Filed: 03/24/19 15:16> Hospitalist Progress Note - Encounter Date of Encounter: 03/24/19 - Exam Vitals: Temp Pulse Resp BP Pulse Ox 98.1 F 88 18 166/84 96 03/24/19 10:48 03/24/19 10:48 03/24/19 10:48 03/24/19 10:48 03/24/19 10:48 - Assessment and Plan (1) Hypertension Current Visit: Yes Status: Chronic (2) Shortness of breath Current Visit: Yes Status: Acute (3) Diabetes Current Visit: Yes Status: Chronic (4) Asthma Current Visit: Yes Status: Chronic (5) DVT prophylaxis Current Visit: Yes Status: Acute (6) Anxiety Current Visit: Yes Status: Chronic (7) Chest tightness Current Visit: Yes Status: Acute - Time Spent with Patient Total time spent is greater than 50% in coordination of care (as documented) at patient's floor/unit and/or counseling patient: Internal Medicine: Result - Labs CBC & Chem 7: 03/24/19 00:51 03/24/19 00:51 Labs: Short CBC 03/23/19 03/24/19 Range/Units 16:44 00:51 WBC 7.4 7.0 (4.3-11.1) K/mcL Hgb 15.4 14.4 (11.5-15.4) g/dL Hct 46.6 H 44.5 (35.3-44.9) % Plt Count 270 256 (140-400) K/mcL Neutrophils # 4.2 (1.6-8.9) K/mcL BMP 03/23/19 03/24/19 16:44 00:51 Sodium 139 139 Potassium 4.2 3.6 Chloride 100 101 Carbon Dioxide 27 29 BUN 29 H 29 H Creatinine 0.83 1.01 Glucose 148 H 175 H Calcium 10.0 9.4 Cardiac Enzymes 03/24/19 03/24/19 03/24/19 Range/Units 00:51 10:06 12:47 Troponin I < 0.03 < 0.03 < 0.03 (< 0.04) ng/mL Urine 03/23/19 Range/Units 18:50 Urine Color Yellow (Yellow) Urine Clarity Cloudy A (Clear) Urine pH 5.0 (5.0-8.0) pH Units Ur Specific [place] 1.027 H (1.010-1.025) Urine Protein Trace (Neg-Trace) mg/dL Urine Glucose (UA) Normal (Normal) mg/dL - Impressions Impressions Chest X-Ray 03/23/19 16:19 IMPRESSION: No acute cardiopulmonary findings. D/ / Stacie Shankar MD / Stacie Shankar MD Interpreting Provider: Stacie Shankar MD - Attending Attestation I examined this patient and my medical decision-making was reviewed with the Resident Physician. I agree with the documented findings, disposition and treatment plan as described except to the extent set forth below. <Sedrick Vargas - Last Filed: 03/24/19 13:45> (3) Hypertension Qualifiers: Hypertension type: essential hypertension Qualified Code(s): I10 - Essential (primary) hypertension (4) Diabetes Qualifiers: Diabetes mellitus type: type 2 Diabetes mellitus terminal clerk insulin use: unspecified senior care insulin use status Diabetes mellitus complication status: with other specified complication Qualified Code(s): E11.69 - Type 2 diabetes mellitus with other specified complication <Celestino Sumner - Last Filed: 03/24/19 15:16> (1) Hypertension Qualifiers: Hypertension type: essential hypertension Qualified Code(s): I10 - Essential (primary) hypertension (3) Diabetes Qualifiers: Diabetes mellitus type: type 2 Diabetes mellitus senior care insulin use: unspecified senior care insulin use status Diabetes mellitus complication status: with other specified complication Qualified Code(s): E11.69 - Type 2 diabetes mellitus with other specified complication (4) Asthma Qualifiers: Asthma severity: mild Asthma persistence: intermittent Asthma complication type: uncomplicated Qualified Code(s): J45.20 - Mild intermittent asthma, uncomplicated
--- NOTE | 2019-03-24 14:42 | Electrocardiograph Report ---
[place] [id number] Test Date: 2019-03-23 Pat Name: Laya Martinez Department: EXAM9 Room: 2A34 Gender: F Marine Engineer: : [id number] Requested By: Yan Ellis Order Number: [id number] Reading MD: Doug Gill Measurements Intervals [place] Rate: 83 P: -3 OK: 184 QRS: -10 QRSD: 94 T: 58 QT: 371 QTc: 436 Interpretive Statements Sinus rhythm Abnormal R-wave progression,late transition Electronically Signed On 03-24-2019 14:40:53 EDT by Doug Gill
[2019-03-24] MEDS ORDERED: Insulin LISPRO 300 UNITS/3 ML VIAL SQ SCH (21:00)
[2019-03-25] MEDS: *HR* Heparin 5,000 UNIT/ML VIAL SQ SCH (06:43)
[2019-03-25 07:13] LABS: Hematocrit 42.7 % (35.3-44.9); Hemoglobin 14.1 g/dL (11.5-15.4); Mean Corpuscular Hemoglobin 29.6 pg (28.0-33.3); Mean Corpuscular Volume 89.7 fL (83.0-100.0); Mean Platelet Volume 10.1 fL (9.4-12.4); Platelet Count 220 K/mcL (140-400); Red Blood Count 4.76 M/mcL (3.82-4.97); Red Cell Distribution Width 12.5 % (11.5-14.5); White Blood Count 4.7 K/mcL (4.3-11.1)
[2019-03-25 07:34] LABS: BUN/Creatinine Ratio 23 (6-26); Blood Urea Nitrogen 19 mg/dL (8-23); Calcium 9.7 mg/dL (8.6-10.3); Carbon Dioxide 28 mEq/L (23-29); Chloride 100 mEq/L (98-107); Glucose 286 mg/dL (70-105); Osmolality,Calculated 299 (280-300); Potassium 4.4 mEq/L (3.5-5.1); Sodium 138 mEq/L (136-145); eGFR For African Americans > 60 (> 60); eGFR For Non-African Americans > 60 (> 60)
[2019-03-25] MEDS ORDERED: tiZANidine 4 MG TABLET PO PRN (08:04)
[2019-03-25] MEDS ORDERED: PAROXETINE HCL 40 MG PO SCH (09:00)
[2019-03-25] MEDS ORDERED: amLODIPine 5 MG TABLET PO SCH (09:00)
[2019-03-25] MEDS ORDERED: Budesonide/Formoterol 80/4.5 MDI IH SCH (09:00)
--- NOTE | 2019-03-25 09:38 | Internal Med Progress Note ---
Hospitalist Progress Note - Encounter Date of Encounter: 03/25/19 Time of Encounter: 09:38 - Subjective Interval History: No acute events overnight - Exam Vitals: Temp Pulse Resp BP Pulse Ox 98.4 F 75 18 150/90 93 03/25/19 07:00 03/25/19 07:00 03/25/19 07:00 03/25/19 07:00 03/25/19 07:00 Exam: GENERAL APPEARANCE: Morbidly obese, alert and cooperative, and appears to be in no acute distress. HEAD: normocephalic. EYES: PERRL, EOMI. Fundi normal, vision is grossly intact. EARS: hearing grossly intact. NOSE: No nasal discharge. THROAT: Oral cavity and pharynx normal. No inflammation, swelling, exudate, or lesions. NECK: Neck supple, non-tender without lymphadenopathy, masses or thyromegaly. CARDIAC: Normal S1 and S2. No S3, S4 or murmurs. Rhythm is regular. There is no peripheral edema, cyanosis or pallor. Extremities are warm and well perfused. Capillary refill is less than 2 seconds. No carotid bruits. LUNGS: Clear to auscultation and percussion without rales, rhonchi, wheezing or diminished breath sounds. ABDOMEN: Positive bowel sounds. Soft, nondistended, nontender. No guarding or rebound. No masses. MUSKULOSKELETAL: ROM intact spine and extremities. No joint erythema or tenderness. Normal muscular development. EXTREMITIES: No significant deformity or joint abnormality. Peripheral pulses intact. No varicosities. LOWER EXTREMITY: Borderline +1 pitting edema bilaterally. Pulses intact and symmetrical bilaterally. Good capillary refill. SKIN: Skin normal color, texture and turgor with no lesions or eruptions. PSYCHIATRIC: The mental examination revealed the patient was oriented to person, place, and time. - Assessment and Plan (1) Chest tightness Current Visit: Yes Status: Acute Assessment and Plan: Stress test pending results. (2) Hypertension Current Visit: Yes Status: Chronic Assessment and Plan: Hx of poorly controlled HTN. Pt. reports blood pressure runs high and then returns to normal. Pt. sees Dr. Gill who saw her today and referred her to the ED d/t systolic BP >200. Continue pts. Amlodipine, hydralazine, lisinopril, and metoprolol. BP now in normal limits. (3) Shortness of breath Current Visit: Yes Status: Acute Assessment and Plan: Likely from + Parainfluenza (4) Diabetes Current Visit: Yes Status: Chronic (5) Asthma Current Visit: Yes Status: Chronic Assessment and Plan: Hx of chronic anxiety. Stable. Pt. reports some chest tightness and cough. DuoNebs. Mucinex for cough. Supplemental O2 with titration and SPO2 monitoring. (6) Anxiety Current Visit: Yes Status: Chronic Assessment and Plan: Hx of chronic anxiety. Continue pts. Paxil. (7) DVT prophylaxis Current Visit: Yes Status: Acute Assessment and Plan: Heparin 5,000 units SQ Q8HR for DVT prophylaxis. - Time Spent with Patient Total time spent is greater than 50% in coordination of care (as documented) at patient's floor/unit and/or counseling patient: Internal Medicine: Result - Labs CBC & Chem 7: 03/25/19 06:37 03/25/19 06:37 Labs: Short CBC 03/25/19 Range/Units 06:37 WBC 4.7 (4.3-11.1) K/mcL Hgb 14.1 (11.5-15.4) g/dL Hct 42.7 (35.3-44.9) % Plt Count 220 (140-400) K/mcL BMP 03/25/19 06:37 Sodium 138 Potassium 4.4 Chloride 100 Carbon Dioxide 28 BUN 19 Creatinine 0.82 Glucose 286 H Calcium 9.7 Cardiac Enzymes 03/24/19 03/24/19 Range/Units 10:06 12:47 Troponin I < 0.03 < 0.03 (< 0.04) ng/mL Consult Discharge Plan - Plan Referrals: Ja Cardoso MD [Primary Care Provider] - (2) Hypertension Qualifiers: Hypertension type: essential hypertension Qualified Code(s): I10 - Essential (primary) hypertension (4) Diabetes Qualifiers: Diabetes mellitus type: type 2 Diabetes mellitus shelter insulin use: unspecified emergency technician insulin use status Diabetes mellitus complication status: with other specified complication Qualified Code(s): E11.69 - Type 2 diabetes mellitus with other specified complication (5) Asthma Qualifiers: Asthma severity: mild Asthma persistence: intermittent Asthma complication type: uncomplicated Qualified Code(s): J45.20 - Mild intermittent asthma, uncomplicated
[2019-03-25] MEDS: Metoprolol 100 MG TABLET PO SCH (09:40)
[2019-03-25] MEDS: hydrALAZINE 25 MG TABLET PO SCH (09:40)
[2019-03-25] MEDS: Lisinopril 20 MG TABLET PO SCH (09:40)
[2019-03-25] MEDS ORDERED: Lisinopril 20 MG TABLET PO ONE (10:00)
--- NOTE | 2019-03-25 13:47 | Cardiology Consult Note ---
<Celestino Sumner - Last Filed: 03/25/19 14:10> Date of Encounter: 03/25/19 Assessment and Plan (1) Hypertension Current Visit: Yes Status: Chronic Qualifiers: Hypertension type: essential hypertension Qualified Code(s): I10 - Essential (primary) hypertension (2) Chest tightness Current Visit: Yes Status: Acute (3) Shortness of breath Current Visit: Yes Status: Acute (4) Diabetes Current Visit: Yes Status: Chronic Qualifiers: Diabetes mellitus type: type 2 Diabetes mellitus senior living insulin use: unspecified senior living insulin use status Diabetes mellitus complication status: with other specified complication Qualified Code(s): E11.69 - Type 2 diabetes mellitus with other specified complication (5) Asthma Current Visit: Yes Status: Chronic Qualifiers: Asthma severity: mild Asthma persistence: intermittent Asthma complication type: uncomplicated Qualified Code(s): J45.20 - Mild intermittent asthma, uncomplicated (6) Anxiety Current Visit: Yes Status: Chronic (7) DVT prophylaxis Current Visit: Yes Status: Acute Discussion w patient/family: The assessment and plan as outlined above was discussed with the patient and/or family members who expressed understanding and agreement. All questions were answered. Thank you for involving us in the care of your patient. Please call with any questions. History of Present Illness History of present illness: Ms. Martinez is a 63 year old female Medications and Allergies Metoprolol [Lopressor] 100 mg PO BID 03/23/19 [History] Tizanidine HCl 4 mg PO TID PRN 03/23/19 [History] hydrALAZINE [HydrALAZINE] 25 mg PO TID 03/23/19 [History] metFORMIN [Glucophage] 1,000 mg PO BID 03/23/19 [History] Albuterol Sulfate [Ventolin Hfa] 2 puff IH Q4H PRN 03/24/19 [History] Amlodipine Besylate 5 mg PO DAILY 03/24/19 [History] Exenatide Microspheres [Bydureon Bcise] 2 mg SQ WE 03/24/19 [History] Fluticasone/Salmeterol [Advair Hfa 115-21 Mcg Inhaler] 2 puff IH BID 03/24/19 [History] Insulin Degludec [Tresiba Flextouch U-200] 100 unit SQ QAM 03/24/19 [History] Insulin LISPRO [Humalog Kwikpen U-100] 12 - 18 unit SQ ACHS 03/24/19 [History] Lisinopril [Zestril] 40 mg PO DAILY 03/24/19 [History] PARoxetine HCl [Paroxetine HCl] 40 mg PO DAILY 03/24/19 [History] Allergy/AdvReac Type Severity Reaction Status Date / Time clindamycin Allergy Anaphylaxis Verified 03/23/19 11:17 All Systems Review: The remainder of the systems were reviewed and are negative Physical Examination Vital Signs, Last 4 Hours Temp Pulse Resp BP Pulse Ox 03/25/19 11:01 16 95 03/25/19 10:52 98.0 F 78 18 151/90 94 Results 03/25/19 06:37 03/25/19 06:37 Lab Results 03/25/19 03/25/19 06:37 06:37 WBC 4.7 Hgb 14.1 Hct 42.7 Plt Count 220 Sodium 138 Potassium 4.4 Chloride 100 Carbon Dioxide 28 BUN 19 Creatinine 0.82 Glucose 286 H Calcium 9.7 Consult Discharge Plan - Plan Referrals: Ja Cardoso MD [Primary Care Provider] - <Doug Gill A - Last Filed: 03/25/19 14:49> Date of Encounter: 03/25/19 Time of Encounter: 13:44 Assessment and Plan (1) Abnormal nuclear stress test Current Visit: Yes Status: Acute Low-risk finding on stress test. We will manage medically by addressing risk factors. Commence aspirin 81 mg daily, high intensity statin. Continue beta ayo, lisinopril. (2) Morbid obesity due to excess calories Current Visit: Yes Status: Acute Lifestyle modification to lose weight and improve cardiovascular status (3) Hypertension Current Visit: Yes Status: Chronic Optimize SILVIA inhibitor, beta ayo, and Imdur for adequate blood pressure control Qualifiers: Hypertension type: essential hypertension Qualified Code(s): I10 - Essential (primary) hypertension (4) Obstructive sleep apnea Current Visit: Yes Status: Acute Follows with solar energy sales specialist, needs to comply with CPAP (5) Type 2 diabetes mellitus Current Visit: Yes Status: Acute Needs better control of her diabetes to improve cardiovascular risk profile. Follow-up with sidehand Qualifiers: Diabetes mellitus senior living insulin use: with senior living use Diabetes mellitus complication status: with circulatory complication Diabetes mellitus complication detail: with other circulatory complications Qualified Code(s): E11.59 - Type 2 diabetes mellitus with other circulatory complications; Z79.4 - care home (current) use of insulin Discussion w patient/family: The assessment and plan as outlined above was discussed with the patient and/or family members who expressed understanding and agreement. All questions were answered. Thank you for involving us in the care of your patient. Please call with any questions. History of Present Illness Consult date: 03/25/19 History of present illness: Ms. Martinez is a 63 year old female Ms Martinez is a a 63-year-old pleasant female who I sent to the ER on for progressively worsening shortness of breath and hypertensive urgency. At the time, blood pressure showed values of 200/130mmHg. EKG showed normal sinus rhythm with no acute ST-T changes. Her blood pressure was controlled in the ER patient was admitted to the floor for observation. She has history of hypertension, diabetes, obstructive sleep apnea. She is currently being managed for some form of viral URI/pneumonia. She received pharmacological stress test yesterday and today on account of exertional shortness of breath. Stress test showed mild ischemia in the mid-inferolateral segment. Echo 03/02/19:Technically sub-optimal due to body habitus.LVEF 60-65%.Normal LV chamber size and function.Mild concentric left ventricular hypertrophy.Moderate left ventricular diastolic dysfunction.Mildly dilated right ventricle with normal function.Mild mitral regurgitation.Mild-moderate pulmonary hypertension. Estimated RVSP 47 mmHg. Past Med Surg Social Fam HX - Past Medical History Medical history: asthma, diabetes, hypertension Psychiatric history: no psych history - Past Surgical History Surgical History: other (See below) Additional surgical history: spinal fusion, right indext finger partial amputation - Social History Smoking Status: Never smoker Smokeless Tobacco Status: No Alcohol use: none Drug use: none - Family History Mother Race: Family Member Ethnicity: Non- Living Status: Age at : 51 Cause of : Metastatic bone cancer Hx Family Cancer: Yes (Bone) Father Race: Family Member Ethnicity: Non- Living Status: Age at : 70 Cause of : Lung cancer Hx Family Respiratory Disorders: Yes (Emphysema) Hx Family Cancer: Yes (Lung) Grandmother Race: Family Member Ethnicity: Non- Living Status: Cause of : CAD Hx Family Cardiac Disorders: Yes (CAD) Hx Family Endocrine Disorder: Yes (DM) Brother Race: Family Member Ethnicity: Non- Living Status: Still Living Hx Family Medical Disorders: No Sister Race: Family Member Ethnicity: Non- Living Status: Still Living Hx Family Cardiac Disorders: Yes (CAD) Hx Family Endocrine Disorder: Yes (DM) All Systems Review: The remainder of the systems were reviewed and are negative - Constitutional Constitutional: lethargy, no anorexia, no fever(s) - Cardiovascular Cardiovascular: as per HPI, dyspnea on exertion, no chest pain at rest, no chest pain with exertion, no dyspnea at rest, no irregular heart rhythm, no radiating jaw, neck or arm pain - Respiratory Respiratory: no cough, no wheezing - Gastrointestinal Gastrointestinal: no abdominal pain - Genitourinary Genitourinary: no dysuria - Musculoskeletal Musculoskeletal: abnormal gait - Integumentary Integumentary: no erythema - Neurological Neurological: no abnormal speech - Hematological/Lymphatic Hematologic/Lymphatic: no easy bleeding Physical Examination Vital Signs, Last 4 Hours Temp Pulse Resp BP Pulse Ox 03/25/19 11:01 16 95 03/25/19 10:52 98.0 F 78 18 151/90 94 General: Conversant, Other (Morbidly obese) HEENT: Atraumatic Neck: No JVD Cardiac: Reg Rate and Rhythm, Normal S1 and S2 Lungs: Normal Breath Sounds, No Wheeze, Rales, Rhonchi Neuro: Alert and responsive Abdomen: Soft Musculoskeletal: No Chest Wall Tenderness Extremities: Other (Bilateral mild pedal edema) Results 03/25/19 06:37 03/25/19 06:37 Lab Results 03/24/19 03/25/19 03/25/19 12:47 06:37 06:37 WBC 4.7 Hgb 14.1 Hct 42.7 Plt Count 220 Sodium 138 Potassium 4.4 Chloride 100 Carbon Dioxide 28 BUN 19 Creatinine 0.82 Glucose 286 H Calcium 9.7 Troponin I < 0.03 - EKG Interpretation EKG results cardiology: personally reviewed (Sinus rhythm Abnormal R-wave progression,late transition)
--- NOTE | 2019-03-25 13:54 | Discharge Summary ---
Orders not resulted at time of discharge: Pending orders 03/23/19 18:50 Metanephrine,Ur Random or 24hr Stat 03/24/19 01:56 NM randy perf SPECT multi [NM] Routine 03/26/19 04:00 BMP [Basic Metabolic Panel] AM 0400 CBC no Diff [Complete Blood Count w/o Diff] [HEME] AM 0400 Date of Encounter: 03/25/19 Time of Encounter: 13:44 - Discharge Diagnosis (1) Hypertension Priority: Primary Status: Chronic Qualifiers: Hypertension type: essential hypertension Qualified Code(s): I10 - Essential (primary) hypertension (2) Chest tightness Priority: Secondary Status: Acute (3) Shortness of breath Priority: Secondary Status: Acute (4) Diabetes Priority: Secondary Status: Chronic Qualifiers: Diabetes mellitus type: type 2 Diabetes mellitus detention insulin use: unspecified detention insulin use status Diabetes mellitus complication status: with other specified complication Qualified Code(s): E11.69 - Type 2 diabetes mellitus with other specified complication (5) Asthma Priority: Secondary Status: Chronic Qualifiers: Asthma severity: mild Asthma persistence: intermittent Asthma complication type: uncomplicated Qualified Code(s): J45.20 - Mild intermittent asthma, uncomplicated (6) Anxiety Priority: Secondary Status: Chronic (7) DVT prophylaxis Priority: Secondary Status: Acute Hospital course: Ms. Martinez is a 63 year old female w/PMH of DM, HTN, asthma, and anxiety presents from the ED after being referred there by Dr. Gill while she was being seen in his office. Pts BP in the office was over 200 systolically, so Dr. Gill sent her to [facility] [place] ED for work-up and further testing including his recommendation for a stress test. Pt. reports SOB and swellin in LLE for the past several months. Pt. also reports chest tightness as well as all-over pain from arthralgias. Pt. denies diaphoresis, N/V. Pt. states she has not felt well for the past 4 days and has a cough. Denies fever/chills. States her PCP told her she may have developing asthma. Pt. denies nausea, vomiting, fever, chills, headache, changes in vision, unusual bleeding, abdominal pain, diarrhea, constipation, numbness, tingling, dizziness, lightheadedness, pre-syncope, or syncope. Troponins negative 3. Echocardiogram showed normal EF with mild diastolic dysfunction. Patient underwent cardiac stress test that was positive for ischemia. Cardiology evaluated patient and patient will continue medical management. Aspirin and Lipitor prescribed on discharge. - Time Spent with Patient Total time spent providing and/or coordinating discharge services: - Discharge Medications Prescriptions: Continued metFORMIN [Glucophage] 1,000 mg PO BID hydrALAZINE [HydrALAZINE] 25 mg PO TID Metoprolol [Lopressor] 100 mg PO BID Tizanidine HCl 4 mg PO TID PRN PRN Reason: Muscle Spasm Insulin LISPRO [Humalog Kwikpen U-100] 12 - 18 unit SQ ACHS Amlodipine Besylate 5 mg PO DAILY PARoxetine HCl [Paroxetine HCl] 40 mg PO DAILY Lisinopril [Zestril] 40 mg PO DAILY Insulin Degludec [Tresiba Flextouch U-200] 100 unit SQ QAM Fluticasone/Salmeterol [Advair Hfa 115-21 Mcg Inhaler] 2 puff IH BID Exenatide Microspheres [Bydureon Bcise] 2 mg SQ WE Albuterol Sulfate [Ventolin Hfa] 2 puff IH Q4H PRN PRN Reason: Shortness Of Breath Home Medications: Metoprolol [Lopressor] 100 mg PO BID 03/23/19 [History] Tizanidine HCl 4 mg PO TID PRN 03/23/19 [History] hydrALAZINE [HydrALAZINE] 25 mg PO TID 03/23/19 [History] metFORMIN [Glucophage] 1,000 mg PO BID 03/23/19 [History] Albuterol Sulfate [Ventolin Hfa] 2 puff IH Q4H PRN 03/24/19 [History] Amlodipine Besylate 5 mg PO DAILY 03/24/19 [History] Exenatide Microspheres [Bydureon Bcise] 2 mg SQ WE 03/24/19 [History] Fluticasone/Salmeterol [Advair Hfa 115-21 Mcg Inhaler] 2 puff IH BID 03/24/19 [History] Insulin Degludec [Tresiba Flextouch U-200] 100 unit SQ QAM 03/24/19 [History] Insulin LISPRO [Humalog Kwikpen U-100] 12 - 18 unit SQ ACHS 03/24/19 [History] Lisinopril [Zestril] 40 mg PO DAILY 03/24/19 [History] PARoxetine HCl [Paroxetine HCl] 40 mg PO DAILY 03/24/19 [History] Aspirin [Adult Aspirin] 81 mg PO DAILY #30 tablet. 03/25/19 [Rx] Atorvastatin [Lipitor] 40 mg PO HS #30 tablet 03/25/19 [Rx] Allergies/Adverse Reactions: Allergy/AdvReac Type Severity Reaction Status Date / Time clindamycin Allergy Anaphylaxis Verified 03/23/19 11:17 Date of admission: 03/23/19 20:47 Primary care physician: Ja Cardoso MD Consults: 03/25/19 12:28 Consult to Cardiology [CONS] Routine Comment: Consulting Provider: Cardiology Yanira Reason for Consult: positive stress test Call Completed: Yes - Constitutional Vitals: Temp Pulse Resp BP Pulse Ox 98.0 F 78 16 151/90 95 03/25/19 10:52 03/25/19 10:52 03/25/19 11:01 03/25/19 10:52 03/25/19 11:01 General appearance: Present: cooperative, mild distress (SOB), A&O X 3, morbidly obese, pleasant, answers questions appropriately Exam: GENERAL APPEARANCE: Morbidly obese, alert and cooperative, and appears to be in no acute distress. HEAD: normocephalic. EYES: PERRL, EOMI. Fundi normal, vision is grossly intact. EARS: hearing grossly intact. NOSE: No nasal discharge. THROAT: Oral cavity and pharynx normal. No inflammation, swelling, exudate, or lesions. NECK: Neck supple, non-tender without lymphadenopathy, masses or thyromegaly. CARDIAC: Normal S1 and S2. No S3, S4 or murmurs. Rhythm is regular. There is no peripheral edema, cyanosis or pallor. Extremities are warm and well perfused. Capillary refill is less than 2 seconds. No carotid bruits. LUNGS: Clear to auscultation and percussion without rales, rhonchi, wheezing or diminished breath sounds. ABDOMEN: Positive bowel sounds. Soft, nondistended, nontender. No guarding or rebound. No masses. MUSKULOSKELETAL: ROM intact spine and extremities. No joint erythema or tender ness. Normal muscular development. EXTREMITIES: No significant deformity or joint abnormality. Peripheral pulses intact. No varicosities. LOWER EXTREMITY: Borderline +1 pitting edema bilaterally. Pulses intact and symmetrical bilaterally. Good capillary refill. SKIN: Skin normal color, texture and turgor with no lesions or eruptions. PSYCHIATRIC: The mental examination revealed the patient was oriented to person, place, and time. . - Patient Status Disposition: Home, Self-Care Condition: Fair Overall status at discharge: patient is back to baseline - Discharge Instructions Follow Up With: Ja Cardoso MD [Primary Care Provider] - - Diet and Activity Activity: increase activity as tolerated Diet: advance to your usual diet
[2019-03-25 15:32] VITALS: BP 146/77
[2019-03-26] MEDS ORDERED: Lisinopril 20 MG TABLET PO SCH (09:00)
[2019-03-29] MEDS ORDERED: EXENATIDE MICROSPHERES 2 MG SQ SCH (08:04)
== END 2019-03-25 16:35 | disposition home or self-care (01) ==
LOC: EMEROOARM 11:08 → 2ANU 11:08 → SUATTDRO 20:47 → 2ANU 22:02
PROVIDERS: ADMIT Internal Medicine; ATTEND Student in an Organized Health Care Education/Training Program

== ENCOUNTER 2022-08-07 09:15 | Inpatient (IN) ==
[2022-08-07] MEDS ORDERED: CeFAZolin Syr 3,000MG/30 ML 3,000 MG/30 ML SYRINGE IVPB ONE (09:28)
[2022-08-07] MEDS: Ringers Solution, Lactated 1,000 ML IVC SCH ×4 (09:40→21:05)
[2022-08-07] MEDS ORDERED: *HR* Propofol 200 MG/20 ML VIAL IVP ONE (11:13)
[2022-08-07] MEDS ORDERED: *HR* FentaNYL (PF) 100 MCG/2 ML VIAL ONE (11:14)
[2022-08-07] MEDS ORDERED: Lidocaine -MPF 2% 2 ML VIAL ONE (11:14)
[2022-08-07] MEDS ORDERED: *HR* Midazolam HCl 2 MG/2 ML VIAL ONE ×2 (11:14→13:07)
[2022-08-07] MEDS ORDERED: Lidocaine/EPI 1:100k 1% 50 ML VIAL ONE (11:38)
[2022-08-07] MEDS ORDERED: *HR* Succinylcholine 200 MG/10 ML VIAL IVP ONE (12:52)
[2022-08-07] MEDS ORDERED: Artificial Tears SOLN 15 ML BOTTLE BOTH EYES PRN (14:26)
[2022-08-07] MEDS ORDERED: Naloxone 0.4 MG/ML INJ IVP PRN (14:26)
[2022-08-07] MEDS ORDERED: Ondansetron 4 MG/2 ML VIAL IVP PRN (14:26)
[2022-08-07] MEDS ORDERED: Famotidine 20 MG/2 ML VIAL IVP SCH ×2 (14:31→18:00)
[2022-08-07] MEDS: Midazolam HCl 50 MG/50 ML IV.SOLN IVC SCH ×2 (14:52→21:02)
[2022-08-07] MEDS: FentaNYL (PF) 1,000 MCG/100 ML IV.SOLN IVC SCH ×2 (14:55→21:03)
[2022-08-07] MEDS ORDERED: EPHEDrine sulfate 50 MG/10 ML VIAL IVP ONE (15:34)
[2022-08-07] MEDS: Famotidine 20 MG/2 ML VIAL IVP SCH (16:27)
[2022-08-07] MEDS: Artificial Tears SOLN 15 ML BOTTLE BOTH EYES SCH ×3 (17:18→23:00)
[2022-08-07] MEDS ORDERED: 0.9 % Sodium Chloride 1,000 ML IV ONE (17:39)
[2022-08-07] MEDS: Insulin LISPRO 300 UNITS/3 ML VIAL SUBQ SCH ×2 (17:46→23:00)
[2022-08-07 18:32] LABS: ABG Base Excess -3 mEq/L (-2 to 3); ABG HCO3 24 mEq/L (21-27); ABG Oxygen Saturation 97 % (95-98); ABG PCO2 49 mmHg (35-45); ABG PO2 97 mmHg (85-104); ABG TCO2 26 mEq/L (20-26); Blood Gas Modality AF; Blood Gas VT 400 cc
[2022-08-07 20:00] LABS: Basophils % 0.2 %; Eosinophils % 0.2 %; Hematocrit 45.1 % (35.3-44.9); Hemoglobin 14.1 g/dL (11.5-15.4); Immature Granulocytes % 0.2 % (0-4); Lymphocytes # 0.7 K/mcL (0.6-4.6); Lymphocytes % 13.1 %; Mean Corpuscular HGB Conc 31.3 g/dL (31.6-35.5); Mean Corpuscular Hemoglobin 28.9 pg (28.0-33.3); Mean Corpuscular Volume 92.4 fL (83.0-100.0); Mean Platelet Volume 10.3 fL (9.4-12.4); Monocytes # 0.1 K/mcL (0.0-1.3); Neutrophils # 4.2 K/mcL (1.6-8.9); Platelet Count 179 K/mcL (140-400); Red Blood Count 4.88 M/mcL (3.82-4.97); Red Cell Distribution Width 14.7 % (11.5-14.5); Segmented Neutrophils % 84.3 %
[2022-08-07] MEDS: Chlorhexidine Rinse 15 ML MOUTHWASH MM SCH (20:04)
[2022-08-07 20:18] LABS: Albumin 3.4 g/dL (3.5-5.7); Albumin/Globulin Ratio 1.3 (1.1-2.2); Bilirubin,Total 0.5 mg/dL (0.3-1.0); Calcium 8.8 mg/dL (8.6-10.3); Globulin 2.6 g/dL (2.4-3.5); Potassium 4.5 mEq/L (3.5-5.1)
[2022-08-08] MEDS: Artificial Tears SOLN 15 ML BOTTLE BOTH EYES SCH ×6 (03:17→23:05)
[2022-08-08] MEDS: FentaNYL (PF) 1,000 MCG/100 ML IV.SOLN IVC SCH ×3 (03:20→23:06)
[2022-08-08 03:41] LABS: Hematocrit 43.6 % (35.3-44.9); Hemoglobin 13.4 g/dL (11.5-15.4); Immature Granulocytes % 0.2 % (0-4); Lymphocytes # 0.7 K/mcL (0.6-4.6); Lymphocytes % 12.6 %; Mean Corpuscular HGB Conc 30.7 g/dL (31.6-35.5); Mean Corpuscular Hemoglobin 28.3 pg (28.0-33.3); Mean Corpuscular Volume 92.2 fL (83.0-100.0); Mean Platelet Volume 10.7 fL (9.4-12.4); Monocytes # 0.1 K/mcL (0.0-1.3); Monocytes % 2.1 %; Neutrophils # 4.9 K/mcL (1.6-8.9); Platelet Count 218 K/mcL (140-400); Red Blood Count 4.73 M/mcL (3.82-4.97); Red Cell Distribution Width 14.6 % (11.5-14.5); Segmented Neutrophils % 85.1 %; White Blood Count 5.7 K/mcL (4.3-11.1)
[2022-08-08 04:05] LABS: Calcium 8.9 mg/dL (8.6-10.3); Potassium 4.6 mEq/L (3.5-5.1)
[2022-08-08 04:10] LABS: ABG Base Excess -3 mEq/L (-2 to 3); ABG HCO3 25 mEq/L (21-27); ABG Oxygen Saturation 95 % (95-98); ABG PCO2 51 mmHg (35-45); ABG PH 7.29 pH Units (7.32-7.45); ABG PO2 84 mmHg (85-104); ABG TCO2 26 mEq/L (20-26); Blood Gas VT 400 cc
[2022-08-08] MEDS: Insulin LISPRO 300 UNITS/3 ML VIAL SUBQ SCH ×4 (05:00→23:05)
[2022-08-08] MEDS: Famotidine 20 MG/2 ML VIAL IVP SCH ×2 (05:01→17:01)
[2022-08-08] MEDS: Ringers Solution, Lactated 1,000 ML IVC SCH ×3 (06:04→19:02)
[2022-08-08] MEDS: Chlorhexidine Rinse 15 ML MOUTHWASH MM SCH ×2 (07:56→20:15)
[2022-08-08] MEDS ORDERED: [UNRECOGNIZED DRUG - OTHER] SQ ONE (15:27)
[2022-08-08] MEDS: [UNRECOGNIZED DRUG - OTHER] SQ PRN (16:30)
[2022-08-08] MEDS: Midazolam HCl 50 MG/50 ML IV.SOLN IVC SCH (16:56)
[2022-08-09] MEDS: Ringers Solution, Lactated 1,000 ML IVC SCH ×3 (01:09→12:07)
[2022-08-09] MEDS: [UNRECOGNIZED DRUG - OTHER] SQ PRN ×2 (01:44→08:04)
[2022-08-09] MEDS: Artificial Tears SOLN 15 ML BOTTLE BOTH EYES SCH ×5 (03:27→19:19)
[2022-08-09 03:41] LABS: ABG Base Excess -2 mEq/L (-2 to 3); ABG HCO3 25 mEq/L (21-27); ABG Oxygen Saturation 95 % (95-98); ABG PCO2 49 mmHg (35-45); ABG PH 7.31 pH Units (7.32-7.45); ABG PO2 81 mmHg (85-104); ABG TCO2 26 mEq/L (20-26); Blood Gas VT 440 cc
[2022-08-09 04:48] LABS: Basophils % 0.1 %; Hematocrit 40.7 % (35.3-44.9); Hemoglobin 12.3 g/dL (11.5-15.4); Immature Granulocytes % 0.3 % (0-4); Lymphocytes # 0.9 K/mcL (0.6-4.6); Lymphocytes % 9.7 %; Mean Corpuscular HGB Conc 30.2 g/dL (31.6-35.5); Mean Corpuscular Volume 92.7 fL (83.0-100.0); Monocytes # 0.6 K/mcL (0.0-1.3); Monocytes % 6.6 %; Neutrophils # 7.8 K/mcL (1.6-8.9); Platelet Count 184 K/mcL (140-400); Red Blood Count 4.39 M/mcL (3.82-4.97); Red Cell Distribution Width 14.5 % (11.5-14.5); Segmented Neutrophils % 83.3 %; White Blood Count 9.4 K/mcL (4.3-11.1)
[2022-08-09] MEDS: Insulin LISPRO 300 UNITS/3 ML VIAL SUBQ SCH ×4 (05:02→23:03)
[2022-08-09] MEDS: Famotidine 20 MG/2 ML VIAL IVP SCH ×2 (05:02→18:28)
[2022-08-09 05:07] LABS: Calcium 8.9 mg/dL (8.6-10.3); Magnesium 2.2 mg/dL (1.6-2.6); Phosphorous 4.3 mg/dL (2.7-4.5); Potassium 4.5 mEq/L (3.5-5.1)
[2022-08-09] MEDS: FentaNYL (PF) 1,000 MCG/100 ML IV.SOLN IVC SCH (06:27)
[2022-08-09] MEDS: Chlorhexidine Rinse 15 ML MOUTHWASH MM SCH ×2 (07:32→19:20)
[2022-08-09] MEDS ORDERED: *HR* Dextrose 50 % in Water (Syg) 50 ML SYRINGE IVP PRN (09:38)
[2022-08-09] MEDS ORDERED: Dextrose Gel 15 GM/37.5 ML TUBE PO PRN ×2 (09:38)
[2022-08-09] MEDS ORDERED: D5% in Water 1,000 ML IVC PRN (09:38)
[2022-08-09] MEDS: Insulin DETEMIR 100 UNIT/ML X5UNITS SUBQ SCH ×2 (10:09→20:27)
[2022-08-09 14:09] LABS: ABG Base Excess -2 mEq/L (-2 to 3); ABG HCO3 23 mEq/L (21-27); ABG Oxygen Saturation 100 % (95-98); ABG PCO2 37 mmHg (35-45); ABG PO2 582 mmHg (85-104); ABG TCO2 24 mEq/L (20-26); Blood Gas Modality ASSIST CONTROL; Blood Gas VT 450 cc
[2022-08-09] MEDS ORDERED: *HR* Metoprolol 5 MG/5 ML VIAL IVP PRN ×2 (15:40→15:43)
[2022-08-09] MEDS ORDERED: Metoprolol 100 MG TABLET PO SCH (21:00)
[2022-08-10] MEDS: Insulin LISPRO 300 UNITS/3 ML VIAL SUBQ SCH ×4 (05:39→17:33)
[2022-08-10] MEDS: Famotidine 20 MG/2 ML VIAL IVP SCH ×2 (05:42→17:30)
[2022-08-10 06:33] LABS: Basophils % 0.2 %; Hematocrit 42.2 % (35.3-44.9); Hemoglobin 12.8 g/dL (11.5-15.4); Immature Granulocytes % 0.5 % (0-4); Lymphocytes # 0.7 K/mcL (0.6-4.6); Lymphocytes % 10.3 %; Mean Corpuscular HGB Conc 30.3 g/dL (31.6-35.5); Mean Corpuscular Hemoglobin 28.1 pg (28.0-33.3); Mean Corpuscular Volume 92.7 fL (83.0-100.0); Monocytes # 0.3 K/mcL (0.0-1.3); Monocytes % 4.4 %; Neutrophils # 5.6 K/mcL (1.6-8.9); Platelet Count 172 K/mcL (140-400); Red Blood Count 4.55 M/mcL (3.82-4.97); Red Cell Distribution Width 14.4 % (11.5-14.5); Segmented Neutrophils % 84.6 %; White Blood Count 6.6 K/mcL (4.3-11.1)
[2022-08-10 06:52] LABS: Calcium 9.1 mg/dL (8.6-10.3); Magnesium 2.3 mg/dL (1.6-2.6); Phosphorous 3.6 mg/dL (2.7-4.5); Potassium 4.8 mEq/L (3.5-5.1)
[2022-08-10 08:53] LABS: Estimated Average Glucose 189 mg/dl; Hemoglobin A1C 8.2 %
[2022-08-10] MEDS ORDERED: Doxycycline 100 MG CAPSULE PO SCH (09:00)
[2022-08-10] MEDS: predniSONE 20 MG TABLET PO SCH ×2 (09:25→09:26)
[2022-08-10] MEDS: PARoxetine 20 MG TABLET PO SCH (09:27)
[2022-08-10] MEDS: Acetaminophen 325 MG TABLET PO PRN ×2 (09:33→17:30)
[2022-08-10] MEDS: hydroCHLOROthiazide 25 MG TABLET PO SCH (12:11)
[2022-08-10] MEDS ORDERED: predniSONE 10 MG TABLET PO SCH (12:26)
[2022-08-10] MEDS: *HR* Heparin 5,000 UNIT/ML VIAL SQ SCH ×2 (15:11→23:06)
[2022-08-10] MEDS: hydrALAZINE 25 MG TABLET PO SCH (20:04)
[2022-08-10] MEDS: Insulin DETEMIR 100 UNIT/ML X5UNITS SUBQ SCH (20:05)
[2022-08-10] MEDS: Pregabalin 75 MG CAPSULE PO SCH (20:05)
[2022-08-10 20:51] LABS: Bacteria,Urine Few per hpf (None-Few); Bilirubin,Urine Negative (Negative); Blood,Urine Small (Negative); Clarity,Urine Clear (Clear); Color,Urine Light-Yellow (Yellow); Glucose,Urine (UA) >=1000 mg/dL (Normal); Ketones,Urine Trace mg/dL (Negative); Leukocyte Esterase,Urine Negative (Negative); Mucus,Urine Few per lpf (None-Few); Nitrite,Urine Negative (Negative); Protein,Urine Trace mg/dL (Neg-Trace); RBC,Urine 15-30 per hpf (0-3); Specific Gravity,Urine 1.028 (1.010-1.025); Squamous Epithelial Cell,Urine Few per hpf (None-Few); Urobilinogen,Urine Normal (Normal); WBC,Urine 0-3 per hpf (0-3)
[2022-08-11] MEDS: Acetaminophen 325 MG TABLET PO PRN ×4 (00:32→21:51)
[2022-08-11 03:12] LABS: Hematocrit 40.6 % (35.3-44.9); Hemoglobin 12.6 g/dL (11.5-15.4); Immature Granulocytes % 0.2 % (0-4); Lymphocytes # 1.1 K/mcL (0.6-4.6); Lymphocytes % 16.6 %; Mean Corpuscular Hemoglobin 28.3 pg (28.0-33.3); Mean Corpuscular Volume 91.2 fL (83.0-100.0); Mean Platelet Volume 10.5 fL (9.4-12.4); Monocytes # 0.5 K/mcL (0.0-1.3); Monocytes % 8.5 %; Neutrophils # 4.8 K/mcL (1.6-8.9); Platelet Count 159 K/mcL (140-400); Red Blood Count 4.45 M/mcL (3.82-4.97); Segmented Neutrophils % 74.7 %; White Blood Count 6.4 K/mcL (4.3-11.1)
[2022-08-11 03:31] LABS: Calcium 9.2 mg/dL (8.6-10.3); Potassium 4.4 mEq/L (3.5-5.1)
[2022-08-11 03:32] LABS: VBG Ionized Calcium 1.18 mmol/L (1.15-1.35)
[2022-08-11 03:35] LABS: Albumin 3.4 g/dL (3.5-5.7); Albumin/Globulin Ratio 1.3 (1.1-2.2); Bilirubin,Direct 0.1 mg/dL (0.0-0.2); Bilirubin,Indirect 0.3 mg/dL (0.0-1.0); Bilirubin,Total 0.4 mg/dL (0.3-1.0); Calcium 9.1 mg/dL (8.6-10.3); Globulin 2.7 g/dL (2.4-3.5); Phosphorous 3.5 mg/dL (2.7-4.5); Potassium 4.4 mEq/L (3.5-5.1); Total Protein 6.1 g/dL (6.4-8.9)
[2022-08-11] MEDS: *HR* Heparin 5,000 UNIT/ML VIAL SQ SCH ×3 (05:49→21:06)
[2022-08-11] MEDS: Famotidine 20 MG/2 ML VIAL IVP SCH ×2 (05:49→18:20)
[2022-08-11] MEDS: Insulin LISPRO 300 UNITS/3 ML VIAL SUBQ SCH ×3 (08:31→16:30)
[2022-08-11] MEDS: Aspirin Enteric Coated 81 MG Tablet PO SCH (08:38)
[2022-08-11] MEDS: hydroCHLOROthiazide 25 MG TABLET PO SCH (08:38)
[2022-08-11] MEDS: Pregabalin 75 MG CAPSULE PO SCH ×2 (08:39→21:06)
[2022-08-11] MEDS: PARoxetine 20 MG TABLET PO SCH (08:39)
[2022-08-11] MEDS: hydrALAZINE 25 MG TABLET PO SCH ×2 (08:39→21:06)
[2022-08-11] MEDS: Sulfamethoxazole/Trimeth DS 1 EACH TABLET PO SCH ×2 (11:37→21:06)
[2022-08-11] MEDS: Loratadine 10 MG TABLET PO SCH (21:05)
[2022-08-11] MEDS: Insulin DETEMIR 100 UNIT/ML X5UNITS SUBQ SCH (21:10)
[2022-08-12] MEDS: Acetaminophen 325 MG TABLET PO PRN (04:29)
[2022-08-12 05:25] LABS: Basophils % 0.2 %; Eosinophils % 0.7 %; Hematocrit 42.3 % (35.3-44.9); Hemoglobin 13.5 g/dL (11.5-15.4); Immature Granulocytes % 0.4 % (0-4); Lymphocytes # 1.1 K/mcL (0.6-4.6); Lymphocytes % 20.5 %; Mean Corpuscular HGB Conc 31.9 g/dL (31.6-35.5); Mean Corpuscular Hemoglobin 28.1 pg (28.0-33.3); Mean Corpuscular Volume 88.1 fL (83.0-100.0); Mean Platelet Volume 10.4 fL (9.4-12.4); Monocytes # 0.5 K/mcL (0.0-1.3); Monocytes % 8.5 %; Neutrophils # 3.9 K/mcL (1.6-8.9); Platelet Count 171 K/mcL (140-400); Red Cell Distribution Width 13.6 % (11.5-14.5); Segmented Neutrophils % 69.7 %; White Blood Count 5.6 K/mcL (4.3-11.1)
[2022-08-12 05:26] LABS: VBG Ionized Calcium 1.11 mmol/L (1.15-1.35)
[2022-08-12 05:44] LABS: Albumin 3.4 g/dL (3.5-5.7); Albumin/Globulin Ratio 1.2 (1.1-2.2); Bilirubin,Total 0.6 mg/dL (0.3-1.0); Calcium 9.2 mg/dL (8.6-10.3); Globulin 2.8 g/dL (2.4-3.5); Magnesium 1.8 mg/dL (1.6-2.6); Phosphorous 3.3 mg/dL (2.7-4.5); Potassium 4.3 mEq/L (3.5-5.1); Total Protein 6.2 g/dL (6.4-8.9)
[2022-08-12] MEDS: *HR* Heparin 5,000 UNIT/ML VIAL SQ SCH ×3 (06:10→21:20)
[2022-08-12] MEDS: Famotidine 20 MG/2 ML VIAL IVP SCH (06:11)
[2022-08-12] MEDS: PARoxetine 20 MG TABLET PO SCH (08:38)
[2022-08-12] MEDS: predniSONE 10 MG TABLET PO SCH (08:38)
[2022-08-12] MEDS: Pregabalin 75 MG CAPSULE PO SCH ×2 (08:39→21:19)
[2022-08-12] MEDS: Loratadine 10 MG TABLET PO SCH ×2 (08:39→21:19)
[2022-08-12] MEDS: Aspirin Enteric Coated 81 MG Tablet PO SCH (08:39)
[2022-08-12] MEDS: Sulfamethoxazole/Trimeth DS 1 EACH TABLET PO SCH ×2 (08:39→21:19)
[2022-08-12] MEDS: hydroCHLOROthiazide 25 MG TABLET PO SCH (08:39)
[2022-08-12] MEDS: Insulin DETEMIR 100 UNIT/ML X5UNITS SUBQ SCH ×2 (08:39→21:29)
[2022-08-12] MEDS: Insulin LISPRO 300 UNITS/3 ML VIAL SUBQ SCH ×3 (08:40→16:04)
[2022-08-12] MEDS: hydrALAZINE 25 MG TABLET PO SCH ×2 (09:27→21:19)
[2022-08-12] MEDS: Famotidine 20 MG TABLET PO SCH (21:19)
[2022-08-13 04:55] LABS: Eosinophils # 0.1 K/mcL (0.0-0.6); Eosinophils % 1.1 %; Hemoglobin 13.7 g/dL (11.5-15.4); Immature Granulocytes % 0.5 % (0-4); Lymphocytes % 15.7 %; Mean Corpuscular HGB Conc 31.9 g/dL (31.6-35.5); Mean Corpuscular Volume 87.8 fL (83.0-100.0); Mean Platelet Volume 10.6 fL (9.4-12.4); Monocytes # 0.6 K/mcL (0.0-1.3); Monocytes % 8.6 %; Neutrophils # 4.8 K/mcL (1.6-8.9); Platelet Count 174 K/mcL (140-400); Red Cell Distribution Width 13.8 % (11.5-14.5); Segmented Neutrophils % 74.1 %; White Blood Count 6.5 K/mcL (4.3-11.1)
[2022-08-13 05:13] LABS: Albumin 3.4 g/dL (3.5-5.7); Albumin/Globulin Ratio 1.2 (1.1-2.2); Bilirubin,Total 0.5 mg/dL (0.3-1.0); Calcium 9.5 mg/dL (8.6-10.3); Globulin 2.8 g/dL (2.4-3.5); Magnesium 1.8 mg/dL (1.6-2.6); Phosphorous 3.1 mg/dL (2.7-4.5); Potassium 3.9 mEq/L (3.5-5.1); Total Protein 6.2 g/dL (6.4-8.9)
[2022-08-13] MEDS: *HR* Heparin 5,000 UNIT/ML VIAL SQ SCH ×3 (06:02→22:01)
[2022-08-13] MEDS: hydroCHLOROthiazide 25 MG TABLET PO SCH (07:45)
[2022-08-13] MEDS: Loratadine 10 MG TABLET PO SCH ×2 (07:45→22:00)
[2022-08-13] MEDS: Pregabalin 75 MG CAPSULE PO SCH ×2 (07:45→22:00)
[2022-08-13] MEDS: predniSONE 10 MG TABLET PO SCH (07:45)
[2022-08-13] MEDS: PARoxetine 20 MG TABLET PO SCH (07:45)
[2022-08-13] MEDS: hydrALAZINE 25 MG TABLET PO SCH ×2 (07:46→22:02)
[2022-08-13] MEDS: Famotidine 20 MG TABLET PO SCH ×2 (07:46→22:00)
[2022-08-13] MEDS: Aspirin Enteric Coated 81 MG Tablet PO SCH (07:46)
[2022-08-13] MEDS: Sulfamethoxazole/Trimeth DS 1 EACH TABLET PO SCH (07:46)
[2022-08-13] MEDS: Insulin LISPRO 300 UNITS/3 ML VIAL SUBQ SCH ×3 (07:47→16:56)
[2022-08-13] MEDS: Insulin DETEMIR 100 UNIT/ML X5UNITS SUBQ SCH ×2 (07:53→22:12)
[2022-08-13] MEDS: Acetaminophen 325 MG TABLET PO PRN (08:01)
[2022-08-13] MEDS ORDERED: Vancomycin 2,000 MG/520 ML IV.SOLN IVPB ONE (11:55)
[2022-08-14] MEDS: *HR* Heparin 5,000 UNIT/ML VIAL SQ SCH ×2 (05:01→18:11)
[2022-08-14 05:31] LABS: VBG Ionized Calcium 1.17 mmol/L (1.15-1.35)
[2022-08-14 05:33] LABS: Basophils % 0.1 %
[2022-08-14 05:35] LABS: Eosinophils % 2.1 %; Immature Platelets 7.6 % (1.1-6.1)
[2022-08-14 05:56] LABS: Albumin/Globulin Ratio 1.4 (1.1-2.2); Bilirubin,Total 0.5 mg/dL (0.3-1.0); Globulin 2.9 g/dL (2.4-3.5); Magnesium 1.9 mg/dL (1.6-2.6); Phosphorous 3.9 mg/dL (2.7-4.5); Potassium 4.2 mEq/L (3.5-5.1); Total Protein 6.9 g/dL (6.4-8.9)
[2022-08-14 06:33] LABS: Eosinophils # 0.2 K/mcL (0.0-0.6); Hematocrit 47.8 % (35.3-44.9); Hemoglobin 15.2 g/dL (11.5-15.4); Immature Granulocytes % 0.7 % (0-4); Lymphocytes # 1.7 K/mcL (0.6-4.6); Lymphocytes % 21.7 %; Mean Corpuscular HGB Conc 31.8 g/dL (31.6-35.5); Mean Corpuscular Hemoglobin 28.6 pg (28.0-33.3); Mean Platelet Volume 11.5 fL (9.4-12.4); Monocytes # 0.5 K/mcL (0.0-1.3); Monocytes % 6.8 %; Neutrophils # 5.3 K/mcL (1.6-8.9); Platelet Count 176 K/mcL (140-400); Red Blood Count 5.31 M/mcL (3.82-4.97); Red Cell Distribution Width 13.9 % (11.5-14.5); Segmented Neutrophils % 68.6 %; White Blood Count 7.7 K/mcL (4.3-11.1)
[2022-08-14 07:16] LABS: Platelet Estimate Normal (Normal)
[2022-08-14] MEDS: Insulin DETEMIR 100 UNIT/ML X5UNITS SUBQ SCH (09:40)
[2022-08-14] MEDS: Insulin LISPRO 300 UNITS/3 ML VIAL SUBQ SCH ×3 (09:40→18:17)
[2022-08-14] MEDS: hydrALAZINE 25 MG TABLET PO SCH (09:41)
[2022-08-14] MEDS: Loratadine 10 MG TABLET PO SCH (09:41)
[2022-08-14] MEDS: hydroCHLOROthiazide 25 MG TABLET PO SCH (09:41)
[2022-08-14] MEDS: Famotidine 20 MG TABLET PO SCH (09:41)
[2022-08-14] MEDS: Aspirin Enteric Coated 81 MG Tablet PO SCH (09:42)
[2022-08-14] MEDS: predniSONE 10 MG TABLET PO SCH (09:42)
[2022-08-14] MEDS: PARoxetine 20 MG TABLET PO SCH (09:42)
[2022-08-14] MEDS: Pregabalin 75 MG CAPSULE PO SCH (09:42)
[2022-08-14] MEDS ORDERED: Vancomycin 1,500 MG/265 ML IV.SOLN IVPB SCH (13:00)
[2022-08-14 16:31] VITALS: BP 162/81; PULSE 68; TEMP 98.7; O2SAT 97
== END 2022-08-14 18:43 | disposition home health service (06) | DRG 915 ==
LOC: SDCAOSI 09:15 → ICNU 16:50 → SUATTDRO 16:50 → ICNU 08-11 11:25 → 3NENU 08-12 13:48
PROVIDERS: ADMIT Family Medicine; ATTEND Hospitalist